=== PATIENT | female | born 1995 | race Caucasian/White ===

== ENCOUNTER 2018-04-11 23:20 | Emergency (ER) | payer MEDICAID, SELFPAY ==
[2018-04-11 23:20] VITALS: BP 131/76; PULSE 67; RESP 16; TEMP 36.6; O2SAT 98; BMI 35.4
--- NOTE | 2018-04-11 23:50 | ED.RN ---
PT STATES SHE DOES NOT WANT TO WAIT ANY LONGER AND THAT SHE IS GOING OVER TO [place]. PT ENCOURAGED TO COME BACK WITH ANY CONCERNS.
== END 2018-04-12 08:24 | disposition left against medical advice (07) ==
PROVIDERS: Emergency Provider Emergency Medicine
DX: N39.0 Urinary tract infection, site not specified (principal)

== ENCOUNTER 2018-06-09 23:37 | Emergency (ER) | payer MEDICAID, SELFPAY ==
[2018-06-09 23:39] VITALS: BP 114/70; PULSE 73; RESP 14; TEMP 36.2; O2SAT 98; BMI 36.8
--- NOTE | 2018-06-10 00:12 | ED.VISSUMM ---
- ER Visit Summary Date of Service: 06/10/18 Chief Complaint: Burning with urination History of Present Illness: The patient is a 23 F presenting with burning with urination. She feels that she has a UTI. She has had UTIs in the past and this feels similar. She complains of dysuria, frequency, urgency. She denies hematuria. Denies fever. Denies back pain. Denies nausea or vomiting. Denies possibility of . Denies other complaints. Physical Examination: Vitals are stable. Patient is afebrile. Alert no acute distress. HEENT exam is unremarkable. Neck is supple. Lungs are clear and equal bilaterally. Heart is regular rate and rhythm. Abdomen is soft nontender nondistended. No guarding or rebound Back: No CVA tenderness Extremities are unremarkable. Skin is warm and dry. Remainder of exam is unremarkable. Emergency Department Course and Treatment: Urinalysis shows over 100 white blood cells, 10-25 red blood cells. HCG negative. She is given Macrobid. She is advised to follow-up with Dr. Mar sponsorship coordinator for no doc. Advised return to ED if worsening complaints. Disposition: Discharge home Impression: UTI This note was generated with [employer] dictation software. It may contain incorrect words, spelling, and punctuation that were not noted in review of the chart prior to signing ED Disposition - Plan for ED Patient: Chief Complaint: Complaint Instructions: ED UTI Cystitis Female Prescriptions: Nitrofurantoin Macrocrystals [Macrobid] 100 mg PO Q12 #14 capsule Referrals: Ron Mar MD [STAFF PHYSICIAN] -
[2018-06-10 00:45] LABS: Bacteria 0 SEEN /hpf (None Seen); Mucous, Urine 0 SEEN /hpf (<or=2+)
[2018-06-10 00:57] LABS: Color, Urine Yellow (Yellow); Glucose, Dipstick Normal (Normal); Internal QC Validated? YES +Cl - CLEAR BKGD; Ketone-Dipstick 5 mg/dl (Negative); Leukocyte Esterase-Dipstick 500 /ul (Negative); Nitrite-Dipstick Negative (Negative); Occult Blood-Urine 25 /ul (Negative); Pregnancy, Urine Negative Negative; Protein-Dipstick 100 mg/dl (Negative); Urine Bilirubin Dipstick Negative (Negative); Urine Clarity Cloudy (Clear); Urine Urobilinogen 1 mg/dl (Normal)
[2018-06-10 01:12] LABS: Red Blood Cells-Urine 10-25 SEEN /hpf (0-5); Squamous Epithelial Cells - UA 10-25 SEEN /hpf (5-10); White Blood Cells >100 SEEN /hpf (0-5)
--- NOTE | 2018-06-10 01:17 | ED.DEP ---
ED Disposition - Plan for ED Patient: Chief Complaint: Complaint Instructions: ED UTI Cystitis Female Prescriptions: Nitrofurantoin Macrocrystals [Macrobid] 100 mg PO Q12 #14 capsule Referrals: Ron Mar MD [STAFF PHYSICIAN] -
[2018-06-10 01:24] VITALS: BP 126/78; PULSE 78; RESP 16; O2SAT 97
[2018-06-10] MEDS: Nitrofurantoin Macrocrystals 100 MG Capsule PO (01:24)
== END 2018-06-10 01:24 | disposition home or self-care (01) ==
PROVIDERS: Emergency Provider Emergency Medicine
DX: N39.0 Urinary tract infection, site not specified (principal); Z79.899 Other long term (current) drug therapy; Z87.440 Personal history of urinary (tract) infections
CPT/HCPCS: 81001; 81025; 99283

== ENCOUNTER 2018-12-12 01:54 | Emergency (ER) | payer MEDICAID, SELFPAY ==
[2018-12-12 01:55] VITALS: BP 132/90; PULSE 88; RESP 17; TEMP 36.4; O2SAT 99; BMI 40.3
--- NOTE | 2018-12-12 02:01 | ED.VIS.GEN ---
History of Present Illness Chief Complaint: Dental Detail of Chief Complaint: toothache and cavity Informant: Patient Onset: Weeks - 1 Context: Gradual Onset Timing: Continuous Quality: sore Location: left mandib tooth Current Severity: Moderate Maximum Severity: Moderate Worsened by: eating. Relieved by: nothing. tried naproxen, tylenol. Associated Symptoms: no swelling or fevers. Recent Illness/Hospitalization: No Past Medical History - Allergies and Home Meds Allergies/Adverse Reactions: Allergies promethazine HCl [From Phenergan] Allergy (Verified 06/09/18 23:38) Swelling Primary Care Physician: Care Physician,No Primary [Primary Care Provider] - Dentist,Your [STAFF PHYSICIAN] - Past Medical History: None Surgical History: no surgical history Smoking Status: Current every day smoker Drugs: None - Family History Maternal Family History: Reports: No pertinent history Paternal Family History: Reports: No pertinent history Review of Systems General: Denies: Chills, Fever ENT: Reports: - - toothache. no bleeding/discharge.. Denies: Bilateral ear pain, Rhinorrhea, Sore throat Respiratory: Denies: Dyspnea, Cough Gastrointestinal: Denies: Nausea, Vomiting Physical Exam Vital Signs/Narrative: Vital Signs Temp Pulse Resp BP Pulse Ox 12/12/18 01:55 97.5 F L 88 17 132/90 H 99 Inital Vital Signs reviewed: Yes General: Well nourished, Well developed, No Acute Distress Head: Normocephalic, Atraumatic Eyes: Perrl, EOMI ENT: Moist mucous membranes, No rhinorrhea, - - Obvious focal dental decay tooth #19 with tenderness. No discharge or bleeding. No tenderness in the gingiva, buccal mucosa, or elsewhere around the affected tooth. No trismus. No sublingual swelling/distention.. Negative for: Sinus tenderness Neck: Supple, Nontender, No lymphadenopathy Respiratory: No distress Skin: Normal color, No rash, No Trauma Neurological: Alert, Oriented x3, Cranial nerves II-XII grossly intact, Normal Strength, Normal Sensation Psychological: Normal affect, Normal Mood Diagnostic/Tx/Re-eval - Medical Decision Making The care he was locally anesthetized with benzocaine and then Cavit temporary filling was placed which helped. She was given the rest of the tube and instructions for use. No antibiotics indicated at this time. Advised to follow-up with her dentist as soon as possible, she states she has an appointment at the beginning of January which is 3-4 weeks away. ED Disposition - Plan for ED Patient: Disposition: Home or Assisted Living Diagnosis: Odontalgia, Dental caries Instructions: ED Cavity Dental Referrals: Care Physician,No Primary [Primary Care Provider] - Dentist,Your [STAFF PHYSICIAN] - As soon as possible
--- NOTE | 2018-12-12 02:15 | ED.RN ---
PT LEFT ED BEFORE DISCHARGE PAPERWORK COULD BE GIVEN. DR. DARRON GTZ.
== END 2018-12-12 02:17 | disposition home or self-care (01) ==
PROVIDERS: Emergency Provider Emergency Medicine
DX: K08.89 Other specified disorders of teeth and supporting structures (principal); K02.9 Dental caries, unspecified; F17.200 Nicotine dependence, unspecified, uncomplicated
CPT/HCPCS: 99282

== ENCOUNTER 2019-11-20 10:25 | Emergency (ER) | payer MEDICAID, SELFPAY ==
[2019-11-20 10:26] VITALS: BP 139/82; PULSE 86; RESP 16; TEMP 36.9; O2SAT 97; BMI 38.9
--- NOTE | 2019-11-20 11:11 | ED.DCSUM_ITS ---
History of Present Illness Chief Complaint: Cellulitis Narrative: Patient had a chipped tooth a few months ago however now she started having swelling of the left side of the face for 1 day. She has no fever chills she has no difficulty swallowing she has no cough or congestion. Past Medical History - Allergies and Home Meds Allergies/Adverse Reactions: Allergies promethazine HCl [From Phenergan] Allergy (Verified 11/20/19 10:26) Swelling Primary Care Physician: Care Physician,No Primary [Primary Care Provider] - Past Medical History: None Surgical History: no surgical history Smoking Status: Current every day smoker - Family History Maternal Family History: Reports: No pertinent history Paternal Family History: Reports: No pertinent history Review of Systems General: Denies: Fever ENT: Reports: - - Facial swelling as in HPI. No difficulty swallowing Cardiovascular: Denies: Chest pain Respiratory: Denies: Dyspnea Skin: Denies: Rash Neurological: Denies: Headache, Weakness Hematologic: Denies: Easy bruising Physical Exam Vital Signs/Narrative: Vital Signs Temp Pulse Resp BP Pulse Ox 11/20/19 10:26 98.5 F 86 16 139/82 H 97 General: Well nourished, Well developed, No Acute Distress Head: Normocephalic Eyes: Negative for: Pale conjunctiva ENT: - - There is right upper facial swelling it stemming from a left premolar that is decayed, there is no periapical abscess there is no facial abscess. Normal soft palate Cardiovascular: Regular rate, Regular rhythm Respiratory: No distress Skin: Normal color, No rash Neurological: Normal Strength, Normal Sensation Diagnostic/Tx/Re-eval - Medical Decision Making Patient will be treated with antibiotics and referred to dentistry ED Disposition - Plan for ED Patient: Disposition: Home or Assisted Living Diagnosis: Odontalgia Instructions: Dental Abscess Prescriptions: Clindamycin [Cleocin] 300 mg PO TID #60 cap Transmission Status: Pending to [facility] #30 Additional Instructions: You were given a dental referral sheet. Call your dentist.
== END 2019-11-20 11:32 | disposition home or self-care (01) ==
PROVIDERS: Emergency Provider Emergency Medicine
DX: K08.89 Other specified disorders of teeth and supporting structures (principal); K02.9 Dental caries, unspecified; K03.81 Cracked tooth; F17.200 Nicotine dependence, unspecified, uncomplicated
CPT/HCPCS: 99282

== ENCOUNTER 2022-08-17 13:53 | Emergency (ER) | payer OTHER, MEDICAID, SELFPAY ==
[2022-08-17 13:53] VITALS: BP 108/62; PULSE 67; RESP 18; O2SAT 99
[2022-08-17 13:54] VITALS: BP 142/73; PULSE 88; RESP 18; TEMP 36.8; O2SAT 98; BMI 45.1
[2022-08-17 14:38] VITALS: O2SAT 98
[2022-08-17 15:26] VITALS: BP 90/60; PULSE 98; RESP 18; TEMP 36.7; O2SAT 98
--- NOTE | 2022-08-17 15:26 | EDS_ITS ---
HPI History of Present Illness Chief Complaint: Poisoning Informant: patient Narrative Narrative: Presents with carbon monoxide exposure at work. She works at [employer] forgot to turn on the ventilation. She developed headache and dizziness she left around 11 AM. Later on other coworkers had symptoms and wanted to evaluate in the ED. They are found to have high carbon monoxide levels in the building. People are evacuated. Patient presents here after being called with headache symptoms. No current dizziness. No nausea. Occasional tobacco history. Prior similar symptoms: No PFSH PFSH Medical History no medical history Home Medications clindamycin HCl 150 mg capsule 300 mg PO TID #60 caps 11/20/19 [Rx Last Taken Unknown] Allergy/AdvReac Type Severity Reaction Status Date / Time promethazine HCl Allergy Swelling Verified 08/17/22 13:54 [From Phenergan] Surgical History no surgical history Social History Smoking Status: Current some day smoker tobacco type: cigarettes ROS ROS ED Constitutional Constitutional ED: Denies chills, fever(s) or sweats Eyes Eyes: Denies change in vision ENT ENT ED: Denies dysphagia or sore throat Cardiovascular Cardiovascular: Denies chest pain, leg edema, palpitations or racing heartbeat Respiratory/Chest Respiratory/Chest: Denies cough, dyspnea or dyspnea on exertion Gastrointestinal Gastrointestinal: Denies abdominal pain, diarrhea, nausea or vomiting Genitourinary Genitourinary ED: Denies dysuria, hematuria or urinary frequency Musculoskeletal Musculoskeletal: Denies back pain, extremity pain or neck pain Integumentary Denies rash or wounds Neurologic Neurologic: Reports headache(s); Denies paresthesias or weakness EXAM Physical Exam Const Vital Signs: 08/17/22 13:54 08/17/22 13:53 08/17/22 14:56 Temperature 98.3 F Temperature Source Temporal Pulse Rate 88 67 Respiratory Rate 18 18 Respiratory Effort Normal Non-Labored Respiratory Pattern Normal Blood Pressure 142/73 H 108/62 Blood Pressure Mean 96 77 Pulse Ox 98 99 Oxygen Delivery Method Room Air Non-Rebreather Fraction of Inspired Oxygen (FIO2) 100 08/17/22 14:38 Temperature Temperature Source Pulse Rate Respiratory Rate Respiratory Effort Respiratory Pattern Blood Pressure Blood Pressure Mean Pulse Ox 98 Oxygen Delivery Method Non-Rebreather Fraction of Inspired Oxygen (FIO2) 100 Positive well nourished and well developed General Appearance ED: well developed and NAD HEENT Reports moist mucous membranes normocephalic and atraumatic Eyes PERRL, EOMs intact bilaterally and conjunctivae normal General Eye ED: Yes normal appearance of both eyes Neck no lymphadenopathy and supple Neck Narrative: No meningismus. General: Negative for tenderness Chest Wall Chest: Negative for tenderness Resp normal respiratory effort and normal air movement Effort and Inspection: symmetric chest movement; Negative for respiratory distress Cardio regular rate, regular rhythm and no murmurs Peripheral Pulses: pulses 2+ throughout GI normal to inspection, nondistended, normoactive bowel sounds and non-tender Palpation: Negative for guarding or rebound tenderness present Back/Spine no CVA tenderness and no thoracic nor lumbar tenderness Extremity normal to inspection General Extremety ED: Negative for edema or tenderness General Extremity: Negative for edema Neuro oriented x3, CN's II-XII intact bilaterally and no sensory deficits noted Sensorium / Orientation: awake and alert Skin no rashes or lesions noted and no wounds MDM MDM MDM Narrative Medical decision making narrative: Patient vital signs stable known car monoxide exposure she is placed on 100% nonrebreather. She will be monitored. 1525: Reevaluation symptoms resolved. I checked finger carbon monoxide level 17%. Discussed with patient should be less than 10% with tobacco history. 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 She did not want to stay. Discussed symptoms can return. She understands this. Slow rated dissipation on room air. She will return if anything worsens otherwise she will follow-up with occupational health. Discharge Plan Triage Chief Complaint: Poisoning ED Provider: Ismael Villa Dx/Rx/DC Orders Clinical Impression: Carbon monoxide poisoning, Headache Instructions: ED Carbon Monoxide Poisoning Prescriptions: No Action clindamycin HCl 150 MG capsule 300 mg PO TID Qty: 60 0RF Primary Care Provider: Care Physician,No Primary Referrals: Care Physician,No Primary [Primary Care Provider] - Activity Restrictions/Additional Instructions: Make sure ventilation is on when you are working. [facility] with [facility]. Disposition Disposition: Home, Self Care
== END 2022-08-17 15:32 | disposition home or self-care (01) ==
PROVIDERS: Emergency Provider Emergency Medicine; Visit Provider Emergency Medicine
DX: T58.94XA Toxic effect of carbon monoxide from unspecified source, undetermined, initial encounter (principal); R51.9 Headache, unspecified; F17.210 Nicotine dependence, cigarettes, uncomplicated
CPT/HCPCS: 99282

== ENCOUNTER 2023-03-05 21:23 | Emergency (ER) | payer MEDICAID, SELFPAY ==
[2023-03-05 21:24] VITALS: BP 150/95; PULSE 84; RESP 16; TEMP 36.2; O2SAT 95; BMI 44.2
--- NOTE | 2023-03-05 22:40 | EDS_ITS ---
<Statement entered by Prieto Peacock DO - 03/06/23 00:31> I have personally performed a face to face assessment of the patient and have reviewed the AARON Note. HPI History of Present Illness Chief Complaint: Dental PFSH PFSH Medical History no medical history Home Medications clindamycin HCl 150 mg capsule 300 mg (2 x 150 mg) PO TID #60 caps 11/20/19 [Rx Last Taken Unknown] gabapentin 300 mg capsule 300 mg PO TID #21 caps 03/05/23 [Rx Last Taken Unknown] Allergy/AdvReac Type Severity Reaction Status Date / Time promethazine HCl Allergy Swelling Verified 03/05/23 21:25 [From Phenergan] Surgical History no surgical history Social History Smoking Status: Current some day smoker tobacco type: cigarettes EXAM Physical Exam Const Vital Signs: 03/05/23 21:24 Temperature 97.2 F L Temperature Source Temporal Pulse Rate 84 Respiratory Rate 16 Blood Pressure 150/95 H Blood Pressure Mean 113 Pulse Ox 95 Oxygen Delivery Method Room Air MDM MDM MDM Narrative Medical decision making narrative: HISTORY OF PRESENT ILLNESS: 27-year-old female here with right lower molar pain for the last several months. States couple of months ago her filling fell out and over last 3 days she had increasing pain. Denies fever. States she was seen in outside facility and prescribed antibiotics and a proximal to have been working. She states that prior episodes of dental pain And is worked for her. REVIEW OF SYSTEMS: Pertinent positives: Dental pain Pertinent negatives: Swallowing, drooling, neck stiffness PHYSICAL EXAM: Nursing triage notes reviewed, Vital signs reviewed Constitutional: please see mdm HENT: MMM, no evidence of dental abscess, no submandibular edema or induration, no tonsillar exudates or erythema, uvula midline, patient was controlling secretions, no drooling, no trimus, no dysphonia. There is disrupted tooth in the right lower molar region. There is no fluctuance induration or evidence of dental abscess Eyes: Pupils equal round and reactive to light, Extraocular muscles intact Neck: No stridor, no JVD, full neck ROM Lungs: Clear to auscultation, No wheezing or rales. No increased work of b reathing, no conversational dyspnea, no accessory muscle use, no nasal flaring. No respiratory distress noted Heart: Regular rate and rhythm, No murmurs, No rubs and No gallops, 2+ distal pulses (radial, femoral, posterior tibial) in all extremities MEDICAL DECISION MAKING: Chief Complaint: Dental pain MDM Narrative: The patient was hemodynamically stable, afebrile, nontoxic-appearing. I considered the following differential diagnosis: Dental abscess, ANUG, Ludewig's angina, RPA, SASH REPAIRER, dental caries, gingivitis No clinical evidence to suggest dental abscess, ANUG, Ludewig's angina, RPA, SASH REPAIRER. Patient is already on antibiotics. Will give gabapentin for pain relief Factors affecting care: None Social determinants of health: None History obtained from others: None Shared decision making: I will have a discussion with the patient and or visitors regarding risk/benefits of further testing or admission. They will be made aware of of the risk/benefits inherent in this decision they will be given the opportunity to voice understanding. Consults: None Discharge Plan Triage Chief Complaint: Dental ED Provider: Prieto Peacock Dx/Rx/DC Orders Clinical Impression: Dental caries Prescriptions: New gabapentin 300 mg capsule 300 mg PO TID Qty: 21 0RF No Action clindamycin HCl 150 MG capsule 300 mg PO TID Qty: 60 0RF Primary Care Provider: Care Physician,No Primary Referrals: Care Physician,No Primary [Primary Care Provider] - Activity Restrictions/Additional Instructions: Thank you for trusting us with your care today! Please take Tylenol (2 pills, 650 mg), ibuprofen (2 pills, 400 mg) every 6 hours as needed for pain and fever control. Please take gabapentin as prescribed. Please continue take antibiotics as pre scribed Please return to the emergency department if your symptoms change or worsen. Please follow with your primary care physician for further outpatient evaluation and management. Disposition Disposition: Home, Self Care Discharge Date/Time: 03/05/23 23:32
[2023-03-05] MEDS: Gabapentin 300 MG Capsule PO (23:31)
== END 2023-03-05 23:32 | disposition home or self-care (01) ==
LOC: ED 22:57
PROVIDERS: Emergency Provider Emergency Medicine; Visit Provider Emergency Medicine
DX: K02.9 Dental caries, unspecified (principal); F17.210 Nicotine dependence, cigarettes, uncomplicated; K08.89 Other specified disorders of teeth and supporting structures
CPT/HCPCS: 99283